=== PATIENT | female | born 1990 | race Caucasian/White ===

== ENCOUNTER 2023-05-10 17:04 | Outpatient (CLI) | payer OTHER ==
[2023-05-11] MEDS ORDERED: LOVENOX40 MG/0.4 SUBCUTANEO (13:59)
[2023-05-11] MEDS ORDERED: PRENATAL TABLE1 EAC1 PO (13:59)
== END 2023-05-10 18:13 | disposition home or self-care (01) ==
LOC: NST 17:04
PROVIDERS: ATTEND Obstetrics & Gynecology Maternal & Fetal Medicine
DX: Z34.83 Encounter for supervision of other normal pregnancy, third trimester (principal)

== ENCOUNTER 2023-05-11 12:19 | Inpatient (IN) | payer OTHER ==
[~2023-05-11] VITALS: Ht 154.9 cm; Wt 2.3 kg
[2023-05-11 13:43] LABS: HEMATOCRIT 34.1 % (36.0-45.00); HEMOGLOBIN 11.6 g/dL (12.0-15.00); MEAN CELL VOLUME 94.3 fL (80.00-100.00); MEAN CORPUSCULAR HEMOGLOBIN 32.2 pg (27.00-32.0); MEAN CORPUSCULAR HGB CONC 34.1 g/dl (32.0-36.0); PLATELET COUNT 306 K/uL (150-450); RED BLOOD COUNT 3.62 M/uL (4.00-6.00); RED CELL DISTRIBUTION WIDTH 12.7 % (11.5-14.5)
[2023-05-11] MEDS ORDERED: LOVENOX40 MG/0.4 SUBCUTANEO (13:59)
[2023-05-11] MEDS ORDERED: PRENATAL TABLE1 EAC1 PO (13:59)
[2023-05-11] MEDS ORDERED: CEFOXITIN SODIUM 2,000 MG VIAL IV SCH (14:00)
[2023-05-11] MEDS ORDERED: CITRIC ACID/SODIUM CITRATE 30 ML BLIST.PACK PO SCH (14:00)
[2023-05-11] MEDS ORDERED: ERYTHROMYCIN BASE 3.5 GM OINT...G. OP ONE (14:12)
[2023-05-11] MEDS ORDERED: OXYTOCIN 10 UNITS/ML VIAL ONE ×2 (14:12→18:30)
[2023-05-11 14:19] LABS: INR < 0.93; PROTHROMBIN TIME 9.7 SECONDS (9.0-11.5)
[2023-05-11 14:23] LABS: ALBUMIN 3.1 gm/dL (3.4-5.0); BILIRUBIN TOTAL 0.53 mg/dL (0.3-1.2); CALCIUM 9.4 mg/dL (8.5-10.1); CREATININE SERUM 0.69 mg/dL (0.55-1.02); GFR 97.39; GLOBULINA 3.3 G/DL (2.4-3.5); POTASSIUM 4.86 mEq/L (3.5-5.1); TOTAL PROTEIN 6.4 gm/dL (6.4-8.2)
[2023-05-11 16:40] LABS: ABG PH 7.284 (7.35-7.45); ABG pCO2 44.2 mmHg (35-45)
[2023-05-11 16:41] LABS: ABG PO2 22.4 mmHg (80-100); BASE EXCESS -6.1 mmol/l; BICARBONATE 20.5 mmol/l (23-25); SaO2 29.4 %; Tco2 21.8 mmol/l; o2 21 %
[2023-05-11] MEDS ORDERED: ERYTHROMYCIN BASE 1 GM TUBE OP ONE (17:00)
[2023-05-11] MEDS ORDERED: OXYTOCIN 10 UNITS/ML VIAL IV ONE (17:00)
[2023-05-11] MEDS ORDERED: PROMETHAZINE HCL 25 MG/ML AMPUL IM PRN (18:15)
[2023-05-11] MEDS ORDERED: MEPERIDINE HCL/PF 50 MG,MEPERIDINE HCL/PF 25 MG IM PRN (18:15)
[2023-05-11] MEDS ORDERED: OXYTOCIN 20 UNITS in RINGERS SOLUTION,LACTATED 1,000 ML IV SCH (18:15)
[2023-05-11] MEDS ORDERED: RINGERS SOLUTION,LACTATED 1,000 ML IV SCH (18:16)
[2023-05-11] MEDS ORDERED: FF) RHO(D) IMMUNE GLOBULIN (POM) IM SCH (18:30)
[2023-05-11] MEDS ORDERED: KETOROLAC TROMETHAMINE 30 MG VIAL ONE (19:02)
[2023-05-11 20:59] LABS: HEMATOCRIT 24.9 % (36.0-45.00); MEAN CELL VOLUME 93.1 fL (80.00-100.00); PLATELET COUNT 227 K/uL (150-450); RED BLOOD COUNT 2.68 M/uL (4.00-6.00); RED CELL DISTRIBUTION WIDTH 12.8 % (11.5-14.5)
[2023-05-11 21:00] LABS: MEAN CORPUSCULAR HEMOGLOBIN 31.7 pg (27.00-32.0)
[2023-05-11] MEDS ORDERED: SIMETHICONE 125 MG CAPSULE PO SCH (21:00)
[2023-05-11] MEDS ORDERED: CEFAZOLIN SODIUM 1,000 MG VIAL IV SCH (21:00)
[2023-05-11 21:01] LABS: HEMOGLOBIN 8.5 g/dL (12.0-15.00)
[2023-05-12] MEDS ORDERED: KETOROLAC TROMETHAMINE 10 MG TABLET PO SCH ×2 (02:00→18:00)
[2023-05-12 07:54] LABS: MEAN CELL VOLUME 93.8 fL (80.00-100.00); MEAN CORPUSCULAR HGB CONC 34.8 g/dl (32.0-36.0); PLATELET COUNT 212 K/uL (150-450); RED BLOOD COUNT 2.46 M/uL (4.00-6.00); RED CELL DISTRIBUTION WIDTH 12.6 % (11.5-14.5)
[2023-05-12 08:00] LABS: HEMATOCRIT 23.1 % (36.0-45.00); MEAN CORPUSCULAR HEMOGLOBIN 32.5 pg (27.00-32.0)
[2023-05-12] MEDS ORDERED: ENOXAPARIN SODIUM 30 MG/0.3 ML SYRINGE SUBCUTANEO SCH (09:00)
[2023-05-12] MEDS ORDERED: PNV,CALCIUM 72/IRON/FOLIC ACID 1 TAB TABLET PO SCH (10:21)
[2023-05-12] MEDS ORDERED: FERROUS SULFATE 325 MG TABLET.EC PO SCH (10:21)
[2023-05-12] MEDS ORDERED: OxyCODONE HCL/APAP UD (PERCOCET) PO SCH (13:00)
[2023-05-13 10:57] LABS: HEMATOCRIT 25.3 % (36.0-45.00); MEAN CELL VOLUME 92.8 fL (80.00-100.00); MEAN CORPUSCULAR HEMOGLOBIN 31.6 pg (27.00-32.0); PLATELET COUNT 288 K/uL (150-450); RED BLOOD COUNT 2.72 M/uL (4.00-6.00); RED CELL DISTRIBUTION WIDTH 12.9 % (11.5-14.5)
[2023-05-13 10:58] LABS: HEMOGLOBIN 8.6 g/dL (12.0-15.00)
[2023-05-14] MEDS ORDERED: LOVENOX30 MG/0.3 SUBCUTANEO (07:54)
[2023-05-14] MEDS ORDERED: FERROUS SULFAT325 M1 PO (07:55)
[2023-05-14] MEDS ORDERED: KETO10TA2 PO (07:55)
[2023-05-14] MEDS ORDERED: OXYC1TAB9 PO (07:55)
== END 2023-05-14 12:32 | disposition home or self-care (01) | DRG 786 ==
LOC: LDR 12:19 → OB/GYN 12:19
PROVIDERS: ADMIT Obstetrics & Gynecology Maternal & Fetal Medicine; ATTEND Obstetrics & Gynecology Maternal & Fetal Medicine
PROC: 4A1HXCZ Monitoring of Products of Conception, Cardiac Rate, External Approach (ICD-10-PCS; 2023-05-11)
PROC: 10D00Z1 Extraction of Products of Conception, Low, Open Approach (ICD-10-PCS; principal; 2023-05-11 15:15)
DX: O32.1XX0 Maternal care for breech presentation, not applicable or unspecified (principal); O60.14X0 Preterm labor third trimester with preterm delivery third trimester, not applicable or unspecified; O41.03X0 Oligohydramnios, third trimester, not applicable or unspecified; Z3A.36 36 weeks gestation of pregnancy; Z37.0 Single live birth; Z20.822 Contact with and (suspected) exposure to COVID-19